=== PATIENT | female | born 1995 | race Caucasian/White ===

== ENCOUNTER 2016-12-28 18:48 | Emergency (ER) | payer OTHER ==
[~2016-12-28] VITALS: Ht 167.6 cm; Wt 73.1 kg
[~2016-12-28 18:48] MED LIST: BCPILLS PO
[2016-12-28 18:58] VITALS: TEMP 37.1; Ht 167.6 cm; Wt 73.1 kg
[2016-12-28] MEDS ORDERED: ALUMINUM/MAGNESIUM SUSP 30 ML UDC PO STA (20:02)
[2016-12-28] MEDS ORDERED: LORAZEPAM 0.5 MG TAB SL STA (20:02)
[2016-12-28] MEDS ORDERED: ONDANSETRON 4MG OD TAB PO ONE (20:15)
--- NOTE | 2016-12-28 20:18 | EMERGENCY ROOM VISIT NOTE ---
History Report prepared by Yina: Yrn Robles Under the Supervision of: Dr. Fenrando Ayala D.O. First contact with patient: 19:58 Chief Complaint: ANXIETY Stated Complaint: ANXIETY, HARD TO BREATH, SHAKEY History of Present Illness The patient is a 21 year old female who presents to the Emergency Room with complaints of persistent anxiety that started prior to arrival. The patient complains of feeling lightheaded, having difficulty breathing, vomiting, and feeling shaky. The patient has a history of anxiety attacks. She used to be on anxiety medication, but stopped taking these this past summer. She notes that she has had similar symptoms like this in the past, but hasn't had an attack in awhile. She denies thoughts of wanting to hurt herself, abdominal pain, cough, or fever. However, she does complain of feeling like something is stuck in her throat. Source of History: patient Onset: persistent Position: other (global) Timing: other (persistent) Associated Symptoms: + vomiting, No abdominal pain, No cough, No fevers Note: Other associated symptoms: lightheaded, having difficulty breathing, feeling shaky, feeling like something is stuck in her throat Denies: thoughts of wanting to hurt herself Review of Systems See HPI for pertinent positives & negatives. A total of 10 systems reviewed and were otherwise negative. Past Medical & Surgical Medical Problems: (1) h/o left ankle surgery (2) History of strep sore throat Family History No significant family history Social History Smoking Status: Never Smoker Marital Status: single Housing Status: lives with roommate Occupation Status: [employer] student Current/Historical Medications Scheduled Clonazepam (Klonopin), 1 MG PO Q8 Omeprazole (Prilosec), 20 MG PO DAILY Allergies Coded Allergies: No Known Allergies (Unverified , 12/28/16) Physical Exam Vital Signs Date Time Temp Pulse Resp B/P Pulse Ox O2 Delivery O2 Flow Rate FiO2 12/28/16 22:27 73 16 107/63 99 12/28/16 20:45 63 16 124/73 96 Room Air 12/28/16 19:27 77 12/28/16 18:58 37.1 78 18 108/71 98 Room Air Physical Exam GENERAL: Patient is awake alert somewhat anxious but comfortable appearing. Does not appear to be in pain. EYES: The conjunctivae are clear. The pupils are round and reactive. EARS, NOSE, MOUTH AND THROAT: The nose is without any evidence of any deformity. Mucous membranes are moist tongue is midline NECK: The neck is nontender and supple. RESPIRATORY: Normal respiratory effort is noted there is no evidence of wheezing rhonchi or rales CARDIOVASCULAR: Regular rate and rhythm noted there no murmurs rubs or gallops normal S1 normal S2 GASTROINTESTINAL: The abdomen is soft. Bowel sounds are present in all quadrants. Abdomen is nontender MUSCULOSKELETAL/EXTREMITIES: There is no evidence of gross deformity full range of motion is noted in the hips and shoulders SKIN: There is no obvious evidence of any rash. There are no petechiae, pallor or cyanosis noted. NEUROLOGIC: Patient is awake alert and oriented x3 strength is symmetric patellar reflexes are 2+ bilaterally PSYCH: awake alert mildly anxious appearing, does not appear to be in pain, currently denying suicidal or homicidal ideation. Medical Decision & Procedures ER Provider Diagnostic Interpretation: X-ray results as stated below per interpretation by me and the radiologist. CHEST ONE VIEW PORTABLE CLINICAL HISTORY: Nausea. COMPARISON STUDY: No previous studies for comparison. FINDINGS: Lung volumes are normal. Lungs are clear. There is no pneumothorax or pleural effusion. Cardiac size is normal. Mediastinal contours are normal. IMPRESSION: No acute cardiopulmonary findings. Electronically signed by: Robert Farris M.D. 12/28/2016 8:32 PM Dictated Date/Time: 12/28/2016 8:32 PM Medications Administered Medications (Trade) Dose Ordered Sig/Ellie Route Start Time Stop Time Status Last Admin Dose Admin Lorazepam (Ativan Tab) 0.5 mg NOW STAT SL 12/28/16 20:02 12/28/16 20:03 DC 12/28/16 20:10 0.5 MG Ondansetron HCl (Zofran Odt) 4 mg ONE ONCE PO 12/28/16 20:15 12/28/16 20:16 DC 12/28/16 20:10 4 MG Al Hydroxide/Mg Hydroxide (Maalox Susp) 30 ml NOW STAT PO 12/28/16 20:02 12/28/16 20:03 DC 12/28/16 20:10 30 ML ED Course 1958: The patient was evaluated in room A6. A complete history and physical examination were performed. 2001: Ordered Maalox Susp 30 ml PO, Ativan Tab 0.5 mg SL. 2015: Ordered Zofran Odt 4 mg PO. 2109: Upon reevaluation, the patient is resting comfortably. I discussed the results and treatment plan with her. She verbalized agreement of the treatment plan. The patient was discharged home. Medical Decision Differential diagnosis: Etiologies such as mood disorder, infection, hypoglycemia, electrolyte abnormalities, cardiac sources, intracerebral event, toxicologic, neurologic, as well as others were entertained. Nursing notes reviewed. The patient is a 21-year-old female who presented to the emergency department for an evaluation of anxiety. Patient states that she was drinking alcohol the day before and started having reflux symptoms. She states she became very anxious about this and started having an anxiety attack. The patient states that she's had anxiety attacks in the past for similar episodes. She was treated in the emergency department with Maalox Zofran and Ativan. On subsequent reevaluation she was asymptomatic and having no pain. The patient was evaluated by the [facility] emergency Department outsole caser. She was not felt to meet criteria for inpatient management. She was encouraged to continue all medications as prescribed. She's also encouraged to follow-up with her primary therapist for further evaluation. She was also encouraged to call crisis or return to the emergency department immediately if symptoms change worsen or the need arises. Impression Primary Impression: Anxiety Additional Impression: Acid reflux Scribe Attestation The scribe's documentation has been prepared under my direction and personally reviewed by me in its entirety. I confirm that the note above accurately reflects all work, treatment, procedures, and medical decision making performed by me. Departure Information Dispostion Home / Self-Care Prescriptions Clonazepam (Klonopin) 1 Mg Tab 1 MG PO Q8 for Anxiety/Insomnia, #15 TAB Prov: Fernando Ayala, DO 12/28/16 Omeprazole (Prilosec) 20 Mg Capcr 20 MG PO DAILY, #30 CAP Prov: Fernando Ayala, DO 12/28/16 Referrals No Doctor, Assigned (PCP) Forms HOME CARE DOCUMENTATION FORM, IMPORTANT VISIT INFORMATION Patient Instructions Anxiety Disorder, [facility] Additional Instructions Continue all medications as prescribed. Rest and avoid any strenuous activity. Avoid any alcohol use. Follow-up with [facility] for reevaluation. Call crisis or return to the emergency department immediately if symptoms change worsen or the need arises. Problem Qualifiers Additional Impression: Acid reflux Esophagitis presence: esophagitis presence not specified Qualified Codes: K21.9 - Gastro-esophageal reflux disease without esophagitis
--- NOTE | 2016-12-28 20:33 | DIAGNOSTIC IMAGING REPORT ---
CHEST ONE VIEW PORTABLE CLINICAL HISTORY: Nausea. COMPARISON STUDY: No previous studies for comparison. FINDINGS: Lung volumes are normal. Lungs are clear. There is no pneumothorax or pleural effusion. Cardiac size is normal. Mediastinal contours are normal. IMPRESSION: No acute cardiopulmonary findings. Electronically signed by: Robert Farris M.D. 12/28/2016 8:32 PM Dictated Date/Time: 12/28/2016 8:32 PM
[2016-12-28] MEDS ORDERED: CLON1TAB3 PO (21:46)
[2016-12-28] MEDS ORDERED: OMEP20CA59 PO (21:46)
[2016-12-28 22:27] VITALS: BP 107/63; PULSE 73; O2SAT 99
== END 2016-12-28 22:28 | disposition home or self-care (01) ==
LOC: C.EDB 18:49 → C.EDA 22:28
DX: F41.9 Anxiety disorder, unspecified (principal); K21.9 Gastro-esophageal reflux disease without esophagitis; Z79.899 Other long term (current) drug therapy; Z98.890 Other specified postprocedural states